=== PATIENT | male | born 1995 | race Hispanic/Latino ===

== ENCOUNTER 2018-05-13 16:45 | Emergency (ER) | payer OTHER ==
[~2018-05-13] VITALS: Ht 170.2 cm; Wt 96.8 kg
[2018-05-13] MEDS ORDERED: INSUH10VL SC (16:53)
[2018-05-13] MEDS ORDERED: HumuLIN R (REGULAR) INSULIN (NovoLIN R) **100U/ML** PER UNIT IV ONE ×2 (18:15→18:45)
[2018-05-13] MEDS ORDERED: NS 1,000 ML IV ONE ×3 (18:15→20:15)
[2018-05-13 18:26] LABS: VENOUS BASE EXCESS -1.8 (-2.0-2.0); VENOUS PARTIAL PRESSURE CO2 49.3 mmHg (38.0-50.0); VENOUS PARTIAL PRESSURE O2 51.8 mmHg (30.0-50.0); VENOUS PH 7.323 UNITS (7.330-7.430); VENOUS STANDARD HCO3 22.6 MEQ/L; VENOUS TOTAL CO2 26.5 MEQ/L (24.0-28.0)
[2018-05-13 18:30] LABS: BASO # 0.1 10^3/uL (0.0-0.2); BASO % 0.7 % (0.0-1.0); EOS # 0.1 10^3/uL (0.0-0.50); EOS % 1.1 % (0.0-3.0); HEMATOCRIT 48.7 % (42.0-52.0); HEMOGLOBIN 17.2 g/dl (13.5-17.5); LYMPH # 1.7 10^3/uL (1.5-6.5); LYMPH % 22.6 % (24.0-44.0); MEAN CORPUSCULAR HGB CONC 35.3 g/dl (32.0-36.5); MONO # 0.4 10^3/uL (0.0-0.8); MONO % 5.2 % (0.0-5.0); NEUTROPHILS # 5.3 10^3/uL (1.8-7.7); NEUTROPHILS % 69.9 % (36.0-66.0); PLATELET COUNT, AUTOMATED 200 10^3/uL (150-450); RED BLOOD COUNT 5.73 10^6/uL (4.30-6.10); WHITE BLOOD COUNT 7.5 10^3/uL (4.0-10.0)
[2018-05-13 18:51] LABS: HEMOGLOBIN A1c 11.7 %
[2018-05-13 19:01] LABS: BLOOD UREA NITROGEN 11 MG/DL (7-18); CALCIUM LEVEL 9.2 MG/DL (8.5-10.1); CARBON DIOXIDE LEVEL 25 MEQ/L (21-32); CHLORIDE LEVEL 103 MEQ/L (98-107); CK-MB VALUE MASS < 1.0 NG/ML (<3.6); CPK CREATINE PHOSPHOKINASE 72 U/L (39-308); CREATININE FOR GFR 0.78 MG/DL (0.70-1.30); GLOMERULAR FILTRATION RATE > 60.0 (>60); GLUCOSE, FASTING 217 MG/DL (70-100); MB/CK RELATIVE INDEX 1.39 (< OR =4); SODIUM LEVEL 137 MEQ/L (136-145); TROPONIN I < 0.02 NG/ML (< 0.10)
[2018-05-13] MEDS ORDERED: OFLOXACIN 0.3 % (OCUFLOX) OPTH SOL 5ML XX STA (21:07)
[2018-05-13] MEDS ORDERED: ZOFR4TAB14 SL (21:13)
[2018-05-13] MEDS ORDERED: OFLO3OPSO OP (21:13)
[2018-05-13] MEDS ORDERED: AUGM875T28 PO (21:13)
[2018-05-13] MEDS ORDERED: AUGMENTIN 875 MG TAB PO ONE (21:15)
[2018-05-13 21:31] VITALS: BP 115/69
--- NOTE | 2018-05-14 18:24 | ECGEPIP ---
Stationary ECG Study [facility] - ED Test Date: 2018-05-13 Pat Name: YONATHAN DAO Department: Room: - Gender: M [employer]: : [id number] Requested By: SAIRA Ty PA-C Order Number: [id number] Reading MD: Otilio Gallego Measurements Intervals Petros Rate: 75 P: 22 MO: 174 QRS: 42 QRSD: 93 T: 34 QT: 346 QTc: 389 Interpretive Statements SINUS RHYTHM WITH SINUS ARRHYTHMIA ST ELEVATION, PROBABLY EARLY REPOLARIZATION NO PRIORS FOR COMPARISON Electronically Signed On 05-14-2018 18:24:20 EST by Otilio Gallego
== END 2018-05-13 21:42 | disposition home or self-care (01) ==
LOC: M ED 16:45
DX: R07.89 Other chest pain (principal); H72.92 Unspecified perforation of tympanic membrane, left ear; H66.92 Otitis media, unspecified, left ear; E10.65 Type 1 diabetes mellitus with hyperglycemia